=== PATIENT | female | born 1960 | race Caucasian/White ===

== ENCOUNTER 2021-10-17 07:53 | Outpatient (REF) | payer BC, SELFPAY ==
[2021-10-17 08:39] LABS: COVID-19 Test Positive (Negative)
== END 2021-10-17 07:54 | disposition home or self-care (01) ==
LOC: HO.LAB 07:53
PROVIDERS: Visit Provider Internal Medicine
DX: Z20.822 Contact with and (suspected) exposure to COVID-19 (principal)
CPT/HCPCS: 36415; 87635; C9803